=== PATIENT | female | born 1955 | race Two or more races ===

== ENCOUNTER 2019-06-19 16:44 | Emergency (ER) | payer OTHER ==
[~2019-06-19] VITALS: Ht 157.5 cm; Wt 97.5 kg
[2019-06-19] MEDS ORDERED: LABETALOL HCL100 MG (17:27)
== END 2019-06-19 21:22 | disposition home or self-care (01) ==
LOC: ER 16:44
DX: K80.80 Other cholelithiasis without obstruction (principal)

== ENCOUNTER 2019-07-27 09:22 | Outpatient (CLI) | payer OTHER ==
[~2019-07-27 09:22] MED LIST: LABETALOL HCL100 MG
== END 2019-07-27 09:24 | disposition home or self-care (01) ==
LOC: NUCLEAR 09:22
DX: R10.11 Right upper quadrant pain (principal); K21.9 Gastro-esophageal reflux disease without esophagitis
CPT/HCPCS: 78227; A9537